=== PATIENT | female | born 2000 | race Two or more races ===

== ENCOUNTER 2020-10-02 15:52 | Emergency (ER) | payer OTHER ==
[2020-10-02 16:27] LABS: BILIRUBIN NEGATIVE (NEGATIVE); BLOOD TRACE-INTACT Ery/uL (NEGATIVE); CLARITY CLEAR (CLEAR); COLOR YELLOW (YELLOW); GLUCOSE (U) NORMAL (NORMAL); LEUKOCYTES 1+ Leu/uL (NEGATIVE); NITRITE NEGATIVE (NEGATIVE); PROTEIN NEGATIVE (NEGATIVE); SPECIFIC GRAVITY <=1.005 (1.001-1.030); UROBILINOGEN 0.2 mg/dL (0.2-1.0)
[2020-10-02 16:41] LABS: BACTERIA TRACE; URINARY RBC RARE
[2020-10-02 16:44] LABS: BASOPHIL 0.3 % (0-2); EOSINOPHIL 0.5 % (0-5); HCT 35.3 % (37.0-47.0); LYMPHOCYTE 11.5 % (15-48); MCH 30.9 pg (25.0-31.0); MONOCYTE 16.6 % (0-12); MPV 9.9 fL (6.0-9.5); NEUTROPHIL 70.8 % (41-80); NRBC 0; PLT 284 K/uL (150-400); RBC 3.88 M/uL (4.20-5.40); RDW 12.2 % (11.5-14.0); WBC 6.4 K/uL (4.0-10.5)
[2020-10-02 17:09] LABS: BUN/CREAT RATIO (CALC) 8.1 RATIO; CREATININE 0.62 mg/dL (0.51-0.95); POTASSIUM 3.2 mmol/L (3.5-5.1)
== END 2020-10-02 18:10 | disposition home or self-care (01) ==
LOC: FER 15:52
PROVIDERS: Emergency Medicine
DX: O98.511 Other viral diseases complicating pregnancy, first trimester (principal); U07.1 COVID-19; O99.331 Smoking (tobacco) complicating pregnancy, first trimester; Z3A.09 9 weeks gestation of pregnancy
CPT/HCPCS: 36415; 80048; 81001; 85025; 99283; U0002